=== PATIENT | male | born 1990 | race Caucasian/White ===

== ENCOUNTER 2018-08-05 11:10 | Emergency (ER) | payer OTHER ==
[~2018-08-05] VITALS: Ht 165.1 cm; Wt 108.9 kg
[2018-08-05 11:15] VITALS: Ht 165.1 cm; Wt 108.9 kg
[2018-08-05 13:33] VITALS: BP 144/97
== END 2018-08-05 13:33 | disposition home or self-care (01) ==
LOC: ED 11:10
DX: S81.812A Laceration without foreign body, left lower leg, initial encounter (principal); W26.0XXA Contact with knife, initial encounter; Y93.89 Activity, other specified; Y92.89 Other specified places as the place of occurrence of the external cause; Y99.8 Other external cause status
CPT/HCPCS: 90715; J2270; Q0092